=== PATIENT | male | born 1970 | race Caucasian/White ===

== ENCOUNTER 2023-01-09 16:03 | Emergency (ER) | payer OTHER, SELFPAY ==
--- NOTE | ~2023-01-09 | XR_ITS ---
EXAMINATION: XR hand RT min 3V INDICATION: Right second finger laceration TECHNIQUE: Three views of the right hand are obtained. COMPARISON: None available FINDINGS: There is a soft tissue laceration involving the tuft of the second finger. No underlying os seous abnormality or radiopaque foreign body are identified. 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 No acute fracture is identified. IMPRESSION: 1. Soft tissue laceration of the second finger without underlying osseous abnormality or radiopaque f oreign body. Reviewed, dictated and finalized at location B. IMPRESSION: 1. Soft tissue laceration of the second finger without underlying osseous abnor mality or radiopaque foreign body.
[2023-01-09 16:03] VITALS: BP 161/94; PULSE 92; RESP 16; TEMP 36.8; O2SAT 99
[2023-01-09 16:14] VITALS: BP 161/94; PULSE 92; RESP 16; TEMP 36.8; O2SAT 99
--- NOTE | 2023-01-09 16:16 | ED.WOUNDLAC ---
HPI - Wound/Laceration General Chief Complaint: Wound/Laceration Stated Complaint: Finger laceration Time Seen by Provider: 01/09/23 16:15 History of Present Illness HPI narrative: This is a 52-year-old male, with past medical history of hypertension and diabetes, who presents to the emergency department after cutting his right index finger on a mandolin. Patient states he was cutting potatoes, when his finger slipped and was cut. He denies any other injury and has no other complaints today. He states his last tetanus shot was 4 years ago. Related Data Home Medications Medication Instructions Recorded Confirmed albuterol sulfate 90 mcg/actuation 1 inhalation inhalation Q4H 09/26/19 01/09/23 aerosol inhaler (Ventolin HFA) amlodipine 10 mg tablet 10 mg PO DAILY 09/26/19 01/09/23 chlorthalidone 25 mg tablet 25 mg PO DAILY 09/26/19 01/09/23 fluticasone fur. 100 mcg-umeclid 1 inhalation inhalation DAILY 09/26/19 01/09/23 62.5 mcg-vilant 25 mcg inhalat.powder (Trelegy Ellipta) pravastatin 20 mg tablet 20 mg PO DAILY 09/26/19 01/09/23 Allergies Allergy/AdvReac Type Severity Reaction Status Date / Time No Known Allergies Allergy Verified 01/09/23 16:11 Review of Systems Review of Systems: CONSTITUTIONAL: Denies fever, chills, or sweats. CARDIOVASCULAR: Denies chest pain, palpitations, or edema. RESPIRATORY: Denies cough or dyspnea. GASTROINTESTINAL: Denies abdominal pain, nausea, vomiting, or diarrhea. SKIN: Laceration of right index finger denies rash or itching. NEUROLOGIC: Denies headache, numbness, dizziness, or weakness. PSYCHIATRIC: Denies anxiety or depression. [facility] Past Medical History Medical History (Updated 01/09/23 @ 16:23 by Marco A Alicia MD) Benign hypertension Diabetes mellitus Emphysema lung Fusion of joint Surgical History Surgical History History of surgery on arm Family History Family History Sibling Hypertension Father Family history of lung cancer Mother Family history of lung cancer Social History Social History Smoking status: Former smoker Tobacco type: cigarettes Alcohol intake: current Drinks per week: 12 Substance use: never Substance use type: does not use Living arrangements: other Additional living arrangements comments: Fiance Occupation/Education: occupation Gender identity (if verbalized by the patient): Male Exam Narrative: GENERAL: Well-developed, well-nourished, and in no acute distress. HEAD: Normocephalic, atraumatic. EYES: PERRLA and EOMI. CHEST: Clear to auscultation. No respiratory distress. No wheezes rales or rhonchi HEART: Regular rate and rhythm. No murmur heard. Normal peripheral pulses. EXTREMITIES: A circular laceration approximately 1 cm in diameter of the right index finger on the ventral aspect, just below the fingernail is noted there is no nailbed involvement. There is no obvious exposed bone. Bleeding controlled. Otherwise normal range of motion. No edema. SKIN: Laceration as described above. Skin otherwise warm, dry, no rash. NEURO: No focal deficits. Alert and oriented x3. PSYCH: Normal mood and affect. Course Course Emergency Course: 16:55 - X-ray not concerning for fracture. There is not adequate tissue to suture. Wound dressed with Xeroform gauze and placed in a splint for protection. The patient's tetanus vaccination is up-to-date. Will discharge with instructions for wound care and recommendation to follow-up with a primary care doctor in 3 to 5 days for wound reevaluation. Discussed return and emergency precautions including signs/symptoms of neurovascular compromise and wound infection. The patient voiced understanding and is comfortable with the plan. All questions answered to his satisfaction Vital Signs Vital signs:
[2023-01-09] MEDS: oxyCODONE/ACETAMINOPHEN (*CRX) 5-325 MG TABLET 1 TABLET PO (16:40)
[2023-01-09 17:07] VITALS: BP 161/94; PULSE 92; RESP 16; TEMP 36.8; O2SAT 99
== END 2023-01-09 17:08 | disposition home or self-care (01) ==
PROVIDERS: Emergency Provider Preventive Medicine Aerospace Medicine; PCP Internal Medicine
DX: S61.210A Laceration without foreign body of right index finger without damage to nail, initial encounter (principal); E11.9 Type 2 diabetes mellitus without complications; I10 Essential (primary) hypertension; J43.9 Emphysema, unspecified; Z87.891 Personal history of nicotine dependence; W26.8XXA Contact with other sharp object(s), not elsewhere classified, initial encounter
CPT/HCPCS: 29130; 73130; 99283; A9270